=== PATIENT | female | born 1995 | race Caucasian/White ===

== ENCOUNTER 2020-05-02 16:28 | Emergency (ER) | payer SELFPAY ==
[~2020-05-02] VITALS: Ht 165.1 cm; Wt 59.0 kg
[2020-05-02 16:29] VITALS: BP 93/71
--- NOTE | 2020-05-02 16:48 | NUR ---
24/F C/O LEFT ANKLE PAIN, INCREASING SWELLING S/P FALL X 2 DAYS S/P FALL. MOVES ALL TOES. SENSATION INTACT. PEDAL PULSES 2+ BILATERALLY. PT C/O SOME NUMBNESS. PT STATES SHE WAS AMBULATORY AFTER THE FALL BUT PAIN WITH WEIGHT BEARING. ICING AND TAKING CODEINE FOR PAIN WITH SOME RELIEF. MED HX: EYE SURGERY
[2020-05-02] MEDS ORDERED: KETOROLAC 30 MG/ML VIAL IM ONE (17:00)
--- NOTE | 2020-05-02 17:13 | NUR ---
XRAY AT BEDSIDE
--- NOTE | 2020-05-02 17:37 | NUR ---
dany batista speaking w/ pt at bedside
--- NOTE | 2020-05-02 18:08 | NUR ---
PT DEMONSTRATED PROPER USE OF CRUTHCES
--- NOTE | 2020-05-02 18:08 | NUR ---
APPLIED SUGAR TONG SPLINT TO LEFT ANKLE WITHOUT ANY ISSUES
--- NOTE | 2020-05-02 18:18 | NUR ---
Patient discharged with v/s stable. Written and verbal after care instructions given and explained. Patient alert, oriented and verbalized understanding of instructions. Ambulatory with steady gait w/ crutches. All questions addressed prior to discharge. ID band removed. Patient advised to follow up with PMD. Rx of Tramadol given. Patient educated on indication of medication including possible reaction and side effects. Opportunity to ask questions provided and answered. Pt to wait in lobby for CD images
[2020-05-02 18:19] VITALS: BP 106/68
== END 2020-05-02 18:18 | disposition home or self-care (01) ==
LOC: MED 16:28
DX: M25.572 Pain in left ankle and joints of left foot (principal); X50.9XXA Other and unspecified overexertion or strenuous movements or postures, initial encounter; Y93.89 Activity, other specified; Y92.89 Other specified places as the place of occurrence of the external cause; Y99.8 Other external cause status
CPT/HCPCS: 29515; 73610; 73630; 96372; 99284; J1885; Q0092